=== PATIENT | male | born 1995 | race Caucasian/White ===

== ENCOUNTER 2024-09-23 08:46 | Emergency (ER) | payer SELFPAY ==
[~2024-09-23] VITALS: Ht 170.2 cm; Wt 77.0 kg
[2024-09-23 08:49] VITALS: BP 178/85; PULSE 130; RESP 18; TEMP 36.7; O2SAT 99
== END 2024-09-23 08:53 | disposition left against medical advice (07) ==
LOC: ER 08:46
DX: T65.91XA Toxic effect of unspecified substance, accidental (unintentional), initial encounter (principal); F17.200 Nicotine dependence, unspecified, uncomplicated; Y92.89 Other specified places as the place of occurrence of the external cause
CPT/HCPCS: 99283